=== PATIENT | female | born 1950 | race Caucasian/White ===

== ENCOUNTER → 2021-03-31 | Outpatient (CLI) | payer BC, MEDICARE ==
--- NOTE | 2021-03-31 15:38 | XR ---
EXAMINATION TYPE: XR chest 2V DATE OF EXAM: 03/31/2021 COMPARISON: NONE HISTORY: Shortness of breath TECHNIQUE: Frontal and lateral views of the chest are obtained. FINDINGS: Scattered senescent parenchymal changes noted. Hyperinflation compatible with COPD. No evidence for infiltrate. No evidence for atelectasis. Heart size is stable. Mediastinal structures are stable and grossly unremarkable. No evidence for hilar prominence. Degenerative changes dorsal spine. IMPRESSION: 1. No evidence for acute pulmonary disease.
== END | disposition home or self-care (01) ==
LOC: RADXRYALE 15:09
PROVIDERS: ATTEND Internal Medicine
DX: R05.9 Cough, unspecified (principal)
CPT/HCPCS: 71046

== ENCOUNTER 2021-10-27 14:21 | Emergency (ER) | payer BC, MEDICARE ==
[2021-10-27 14:30] VITALS: BP 145/63; PULSE 76; RESP 17; TEMP 98.4
--- NOTE | 2021-10-27 16:10 | CT ---
EXAMINATION TYPE: CT brain cspine wo con CT DLP: 1425 mGycm, Automated exposure control for dose reduction was used. DATE OF EXAM: 10/27/2021 4:02 PM COMPARISON: None. CLINICAL INDICATION:Female, 70 years old with history of fall, pain; TECHNIQUE: Brain: Multiple axial CT images of the brain were obtained without IV contrast. Cspine: Axial CT images from the skull base to the inferior aspect of T2 we obtained without intraven ous contrast. Coronal and sagittal reformatted images were also reviewed. FINDINGS: Brain: Extra-axial spaces: No abnormal extra-axial fluid collections. Ventricular system: Within normal limits Cerebral parenchyma: No acute intraparenchymal hemorrhage or mass effect. The dewitt-white junction is well differentiated. Cerebral volume loss. Cerebellum: Unremarkable. Mass effect: No evidence of midline shift. Intracranial vasculature: unremarkable Soft tissues: Small right parietal subcutaneous hematoma. Calvarium/osseous structures: No depressed skull fracture. Paranasal sinuses and mastoid air cells: Clear. Visualized orbits: Orbital contents are intact. Cervical spine: Fracture: None. Osseous structures: Unremarkable Vertebral alignment: Within normal limits. Spinal canal/Neural Foramina: No evidence of significant spinal canal narrowing. Mild degenerative di sc disease with endplate sclerosis, disc space during, and osteophytosis. Neck soft tissues: Prevertebral soft tissues are within normal limits. Other: The airway is patent. The lung apices are clear. IMPRESSION: * No acute intracranial process. * Small right parietal subcutaneous hematoma. * No evidence of cervical spine fracture. * Mild multilevel degenerative disc disease.
--- NOTE | 2021-10-27 16:10 | ED ---
General Adult HPI - General Chief complaint: Fall Stated complaint: Fall Head Injury/+ 3 steps Time Seen by Provider: 10/27/21 15:17 Source: patient, RN notes reviewed, old records reviewed Mode of arrival: wheelchair Limitations: no limitations - History of Present Illness Initial comments: Patient is a 70-year-old female with past medical history remarkable for diabetes, renal disease, hyperlipidemia presents emergency Department complaining of a fall. Patient states she normally goes downstairs backwards which she was doing when she lost her balance by tripping over a laundry. States that she fell sideways and struck the posterior right side of her head on the cement. Did not lose consciousness. He is not on blood thinners. Currently is describing neck pain, as well as a headache at the site where her head impacted the cement. Denies any bleeding. Denies any loss of consciousness. Denies any blurry vision. Denies any weakness or other injuries. Her only other complaint is a very superficial abrasion over the right elbow but she declines a tetanus booster at this time as she is ALLERGIC to them. Presents for evaluation. Fall occurred shortly prior to arrival. - Related Data Allergies Allergy/AdvReac Type Severity Reaction Status Date / Time codeine Allergy Unknown Verified 10/27/21 14:30 tetanus and diphtheria Allergy Unknown Verified 10/27/21 14:30 toxoids Review of Systems ROS Statement: Those systems with pertinent positive or pertinent negative responses have been documented in the HPI. Review of Systems: CONST: Denies fever EYES: Denies blurry vision ENT: Denies nasal congestion C/V: Denies Chest pain RESP: Denies shortness of breath GI: Denies abdominal pain : Denies dysuria SKIN: Denies rash. MSK: Endorses neck pain NEURO: Endorses headache ROS Other: All systems not noted in ROS Statement are negative. Past Medical History Past Medical History: Diabetes Mellitus, Hyperlipidemia, Renal Disease History of Any Multi-Drug Resistant Organisms: None Reported Past Surgical History: Hysterectomy, Tubal Ligation Past Psychological History: No Psychological Hx Reported Smoking Status: Former smoker Past Alcohol Use History: Occasional Past Drug Use History: None Reported General Exam - General Exam Comments Initial Comments: General: Appears in no acute distress. HEAD: Contusion located over the parietal skull. No step-offs or deformities appreciated. Negative ramos sign. Negative raccoon eyes. EYES: PERRLA, EOMI, conjunctiva normal, no discharge. Peoples are 2 mm and equal bilaterally. ENT: Hearing grossly intact, normal oropharynx. RESPIRATORY: Clear breath sounds bilaterally. No wheezes, rales, or rhonchi. C/V: Regular rate and rhythm. S1 and S2 auscultated, no edema, peripheral pulses 2+ and intact throughout ABD: Abd is soft, nontender, nondistended EXT: Normal range of motion, no obvious deformity. Mostly paraspinal muscle tenderness to palpation of the cervical spine. No midline cervical, thoracic, lumbar spine tenderness to palpation. Pelvis is stable. SKIN: Small contusion located over the posterior right parietal scalp. No bleeding or laceration. Small superficial abrasion over the posterior aspect of the right elbow. NEURO: Alert and oriented 4. No focal deficits. GCS is 15. NIH of 0. Limitations: no limitations Course Vital Signs 10/27/21 14:24 Temperature 98.4 F Pulse Rate 76 Respiratory 17 Rate Blood Pressure 145/63 O2 Sat by Pulse 96 Oximetry Medical Decision Making - Medical Decision Making Based on the patient's presentation and physical exam, I'm concerned for possible injury secondary to fall. Due to her age, based on [place] head CT decision rule I did recommend we obtain CT brain and C-spine. She was in agreement this plan. No other injuries. Did not receive a tetanus due to her ALLERGY. Declines analgesia at this time. CT imaging shows no acute process. No acute intracranial injury. There is degenerative disc disease of the spine. There is also a small right parietal subcutaneous hematoma. I updated the patient and the results were imaging. I did offer her Toradol shot which she refuses. She states her pain is under control. Will be dis charged home at this time. She expressed understanding of her negative workup. I instructed the patient to follow up with their PCP in the next 1-3 days. I explained that the patient should return to the emergency department if they experience any worsening symptoms. Strict return precautions were discussed with the patient. The patient expressed understanding of these instructions. I answered all questions that the patient had. The patient was discharged home in good condition with their prescriptions and follow up information. Disposition Clinical Impression: Fall, Contusion Disposition: HOME SELF-CARE Condition: Good Instructions (If sedation given, give patient instructions): Fall Prevention for Older Adults (ED) Is patient prescribed a controlled substance at d/c from ED?: No Referrals: Vanessa Barraza MD [Primary Care Provider] - 1-2 days Time of Disposition: 16:45
[2021-10-27] MEDS ORDERED: KETOROLAC 15 MG/ML 1 ML VIAL IM STA (16:40)
== END 2021-10-27 17:00 | disposition home or self-care (01) ==
LOC: EC 14:21
DX: S00.03XA Contusion of scalp, initial encounter (principal); E11.9 Type 2 diabetes mellitus without complications; E78.5 Hyperlipidemia, unspecified; N18.9 Chronic kidney disease, unspecified; Z87.891 Personal history of nicotine dependence; Z88.5 Allergy status to narcotic agent; Z88.7 Allergy status to serum and vaccine; W01.10XA Fall on same level from slipping, tripping and stumbling with subsequent striking against unspecified object, initial encounter
CPT/HCPCS: 70450; 72125; 99284